=== PATIENT | female | born 1960 | race Caucasian/White ===

== ENCOUNTER → 2016-10-30 | Outpatient (CLI) | payer OTHER ==
--- NOTE | 2016-10-30 13:52 | MAMMOGRAPHY REPORT ---
BILATERAL DIGITAL DIAGNOSTIC MAMMOGRAM TOMOSYNTHESIS WITH CAD: 10/30/2016 CLINICAL HISTORY: Short interval follow-up of left breast calcifications. History of 2 benign ultra sound guided biopsies of the left breast. TECHNIQUE: Breast tomosynthesis in addition to standard 2D mammography was performed. Current study was also evaluated with a Computer Aided Detection (CAD) system. Bilateral CC and MLO 2-D and tyson synthesis images and spot magnification left CC and ML views were obtained. COMPARISON: Comparison is made to exams dated: 03/10/2016 mammogram, 09/04/2015 ultrasound biopsy, 1 11/05/2014 mammogram - [facility], 04/26/2014 mammogram, 08/22/2015 mammogram - [facility], and 10/23/2013 mammogram. BREAST COMPOSITION: There are scattered areas of fibroglandular density in both breasts. FINDINGS: Spot magnification views of the left breast again demonstrate multiple, at least 3, clust ers of benign-appearing punctate calcifications within the left superior breast, which are stable on spot magnification views dating back to October 2013. Given the long-term stability and benign mo rphology, the calcifications are considered benign. The remainder of both breasts are stable compared to prior exams, without suspicious masses, calcifi cations, or areas of architectural distortion noted. 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 IMPRESSION: ACR BI-RADS CATEGORY 2: BENIGN There is no mammographic evidence of malignancy in either breast. A 1 year screening mammogram is re commended. The patient has been verbally notified of the results. Approximately 10% of breast cancers are not detected with mammography. A negative mammographic repor t should not delay biopsy if a clinically suggestive mass is present. Ana María Strickland M.D. ah/:10/30/2016 08:47:56 [employer] Observer: Jami JOHNSON)(Camille), [facility] letter sent: Normal 1/2 BI-RADS Code: ACR BI-RADS Category 2: Benign
== END | disposition home or self-care (01) ==
LOC: C.MAMM 08:17
PROVIDERS: ATTEND Family Medicine
DX: R92.1 Mammographic calcification found on diagnostic imaging of breast (principal)

== ENCOUNTER → 2017-11-29 | Outpatient (CLI) | payer OTHER ==
--- NOTE | 2017-11-29 15:18 | MAMMOGRAPHY REPORT ---
BILATERAL DIGITAL SCREENING MAMMOGRAM TOMOSYNTHESIS WITH CAD: 11/29/2017 CLINICAL HISTORY: Routine screening. TECHNIQUE: Breast tomosynthesis in addition to standard 2D mammography was performed. Current study was also evaluated with a Computer Aided Detection (CAD) system. COMPARISON: Comparison is made to exams dated: 10/30/2016 mammogram, 08/22/2015 mammogram - [facility], 10/23/2013 mammogram, 10/20/2013 mammogram, 10/18/2012 mammogram, and 03/10/2016 mammo gram - [facility]. BREAST COMPOSITION: There are scattered areas of fibroglandular density in both breasts. FINDINGS: There are stable clusters of punctate microcalcifications in the upper outer quadrant of th e left breast. 2 stable ribbon-shaped biopsy marker clips in the left breast as well. No new new, s uspicious suspicious mass, architectural distortion or cluster of microcalcifications is seen. IMPRESSION: ACR BI-RADS CATEGORY 1: NEGATIVE There is no mammographic evidence of malignancy. A 1 year screening mammogram is recommended. The pa tient will receive written notification of the results. Approximately 10% of breast cancers are not detected with mammography. A negative mammographic report should not delay biopsy if a clinically suggestive mass is present. Denice Rasmussen M.D. ay/:11/29/2017 14:44:50 [employer]ractor Operator: Ramone POTTER(R)(M), [facility] letter sent: Normal 1/2 BI-RADS Code: ACR BI-RADS Category 1: Negative
== END | disposition home or self-care (01) ==
LOC: C.MAMM 12:30
PROVIDERS: ATTEND Family Medicine
DX: Z12.31 Encounter for screening mammogram for malignant neoplasm of breast (principal)